=== PATIENT | female | born 1960 | race African-American/Black ===

== ENCOUNTER → 2017-09-14 | Outpatient (CLI) | payer BC ==
--- NOTE | 2017-09-18 09:46 | MM ---
Reason for exam: screening (asymptomatic). Last mammogram was performed 1 year and 8 months ago. History: Patient is postmenopausal. Family history of breast cancer in paternal cousin at age 42. Physical Findings: A clinical breast exam by your physician is recommended on an annual basis and results should be correlated with mammographic findings. MG Screening Mammo w CAD Bilateral CC and MLO view(s) were taken. Prior study comparison: January 24, 2016, bilateral MG screening mammo w CAD. August 27, 2014, bilateral MG screening mammo w CAD. The breast tissue is extremely dense which could obscure a lesion on mammography. Stable benign calcifications in the right breast. ASSESSMENT: Benign, BI-RAD 2 RECOMMENDATION: Routine screening mammogram of both breasts in 1 year.
== END | disposition home or self-care (01) ==
LOC: RADMAMWWP 10:46
PROVIDERS: ATTEND Obstetrics & Gynecology
DX: Z12.31 Encounter for screening mammogram for malignant neoplasm of breast (principal)

== ENCOUNTER → 2017-10-22 | Outpatient (CLI) | payer OTHER ==
--- NOTE | 2017-10-22 17:25 | CT ---
EXAMINATION TYPE: CT brain wo con DATE OF EXAM: 10/22/2017 COMPARISON: NONE HISTORY: Head contusion x3 days ago. CT DLP: 1079 mGycm. Automated Exposure Control for Dose Reduction was Utilized. TECHNIQUE: CT scan of the head is performed without contrast. FINDINGS: There is no acute intracranial hemorrhage, mass effect, or midline shift identified. The ventricles and sulci are within normal limits in size. Minimal mucosal thickening is seen within the ethmoid sinuses. The globes are intact and the remaining visualized sinuses are clear. Incidental n ote is made of a prominent foramen magnum. IMPRESSION: No acute intracranial process.
== END | disposition home or self-care (01) ==
LOC: RADCTMAIN 16:47
PROVIDERS: ATTEND Emergency Medicine
DX: S01.00XA Unspecified open wound of scalp, initial encounter (principal)
CPT/HCPCS: 70450

== ENCOUNTER → 2018-10-08 | Outpatient (CLI) | payer BC ==
[2018-10-08 08:46] VITALS: BP 175/81; PULSE 79; RESP 18; TEMP 98.1; BMI 30.4
--- NOTE | 2018-10-08 09:43 | P.HPOB ---
History of Present Illness H&P Date: 10/08/18 Chief Complaint: The patient is here for her routine gynecologic exam and mammogram. This is a 58-year-old with an LMP of 2016. The patient is here to establish with this office. She states that has been about 2 years since her last pelvic exam. She denies any postmenopausal bleeding. She does have some hot flashes and wakes up 3 to 4 times per night with hot flashes. She has also experienced some vaginal dryness. She is otherwise without gynecologic complaints. Review of Systems The patient has gained 20 pounds over the last year. She attributes the weight gain to decreased exercise . She denies respiratory, cardiac, or G.I. problems. Past Medical History Past Medical History: GERD/Reflux, Hypertension Additional Past Medical History / Comment(s): small hiatal hernia. 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 History of Any Multi-Drug Resistant Organisms: None Reported Past Surgical History: Section (x3), Cholecystectomy, Tubal Ligation ( At the time of her last ) Additional Past Surgical History / Comment(s): Ectopic surgery. 3 VTPs. Past Anesthesia/Blood Transfusion Reactions: No Reported Reaction Past Psychological History: No Psychological Hx Reported Smoking Status: Never smoker Past Alcohol Use History: None Reported Past Drug Use History: None Reported Additional History: She is . She does have a boyfriend but is not sexually active. 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 - Past Family History Father Family Medical History: Hypertension Additional Family Medical History / Comment(s): Paternal cousin had breast cancer. Paternal aunt had colon cancer. Mother Family Medical History: Hypertension Additional Family Medical History / Comment(s): Maternal grandfather had colon cancer. Son(s) Family Medical History: Hypertension Medications and Allergies Home Medications Medication Instructions Recorded Confirmed Type No Known Home Medications 12/03/14 10/08/18 History Allergies Allergy/AdvReac Type Severity Reaction Status Date / Time No Known Allergies Allergy Verified 10/08/18 08:37 Exam Vital Signs Temp Pulse Resp BP Pulse Ox 10/08/18 08:38 98.1 F 79 18 175/81 99 Intake and Output 10/07/18 10/08/18 10/08/18 22:59 06:59 14:59 Other: Weight 83.007 kg Height 5'5", weight 183 pounds, BMI 30.5. Repeat blood pressure was 150/88. This is a well-developed well-nourished black female who is alert and oriented times 3 in no acute distress. HEENT: Within normal limits. NECK: Supple without mass or thyromegaly. CHEST AND LUNGS: Clear to auscultation. HEART: Regular rate and rhythm. BREASTS: Are without mass or discharge. AXILLARY EXAM: Negative for adenopathy. BACK: Negative for CVA tenderness. ABDOMEN: Soft, nontender, without palpable masses. PELVIC EXAM: Normal external genitalia with mild atrophy. Cervix and vagina appear normal with mild atrophy. The cervix appears nulliparous. There is no unusual discharge. There is no evidence of prolapse. The uterus is midposition , nongravid size and nontender. There are no palpable adnexal masses or tenderness. RECTAL EXAM: rectovaginal exam is negative for mass or tenderness and is negative for occult blood. EXTREMITIES: Nontender. IMPRESSION: 1. 58-year-old menopausal female with normal gynecologic exam. 2. Elevated blood pressure. 3. Mild to moderate vasomotor symptoms. PLAN: 1. Pap smear was performed. 2. Self breast awareness was discussed with the patient. 3. Screening mammogram will be done today. 4. Osteoporosis prevention was discussed. I have stressed the importance of adequate calcium, vitamin D and regular exercise. Recommended amounts of calcium and vitamin D were also discussed. 5. The patient is aware of her blood pressure elevation. She states her primary care physician had recommended medication for hypertension, but the patient refused the medication and increased exercise which resulted in a normal follow-up blood pressure according to the patient. I have asked that she do her own blood pressure checks on a regular basis and to follow-up with Dr. Beckwith regarding hypertension. 6. We have discussed the management of her menopausal symptoms including vasomotor symptoms and vaginal dryness. At this time we will try without medication or hormones. We have discussed possible risks of hormone replacement therapy, including heart attack, stroke and breast cancer. She will try to go without medications at this time. She can also use a vaginal lubricant or vaginal moisturizer as needed. 7. I have recommended screening colonoscopy since she has never had this done. She will talk with Dr. Beckwith about this as well as her blood pressure. 8. She will return in one year.
--- NOTE | 2018-10-14 14:42 | MM ---
Reason for exam: screening (asymptomatic). Last mammogram was performed 1 year and 1 month ago. History: Patient is postmenopausal. Family history of breast cancer in paternal cousin at age 42. Physical Findings: A clinical breast exam by your physician is recommended on an annual basis and results should be correlated with mammographic findings. MG Screening Mammo w CAD Bilateral CC and MLO view(s) were taken. Prior study comparison: September 14, 2017, bilateral MG screening mammo w CAD. January 24, 2016, bilateral MG screening mammo w CAD. The breast tissue is heterogeneously dense. This may lower the sensitivity of mammography. Stable round grouped calcifications right upper outer quadrant. No significant changes when compared with prior studies. ASSESSMENT: Negative, BI-RAD 1 RECOMMENDATION: Routine screening mammogram of both breasts in 1 year.
== END ==
LOC: WWCWWP 08:19
PROVIDERS: ATTEND Obstetrics & Gynecology
DX: Z12.31 Encounter for screening mammogram for malignant neoplasm of breast (principal)
CPT/HCPCS: 77067

== ENCOUNTER → 2019-07-02 | Outpatient (CLI) | payer OTHER ==
--- NOTE | 2019-07-02 16:26 | XR ---
EXAMINATION TYPE: XR elbow complete LT DATE OF EXAM: 07/02/2019 CLINICAL HISTORY: S 50.02 XA TECHNIQUE: Frontal, lateral and oblique images of the left elbow are obtained. COMPARISON: None FINDINGS: There is no acute fracture/dislocation evident in the left elbow. No abnormal fat pad sig ns are seen. The overlying soft tissue appears unremarkable. Small posterior olecranon spur is prese nt. IMPRESSION: There is no acute fracture or dislocation in the left elbow.
== END | disposition home or self-care (01) ==
LOC: RADXRMAIN 11:00
PROVIDERS: ATTEND Emergency Medicine
DX: S50.02XA Contusion of left elbow, initial encounter (principal)

== ENCOUNTER → 2020-05-25 | Outpatient (CLI) | payer BC ==
[2020-05-25 12:44] VITALS: BP 154/98; PULSE 74; RESP 18; TEMP 98.8
--- NOTE | 2020-05-25 13:24 | P.HPOB ---
History of Present Illness H&P Date: 05/25/20 Chief Complaint: The patient is here for her routine gynecologic exam and ma mmogram. This is a 59-year-old 053 with an LMP of 2016. The patient is without gynecologic complaints. Review of Systems The patient feels like she has gained weight over the past year, but she is down about 3 pounds from last year. She denies respiratory or cardiac problems. GI: Some occasional gastric reflux. Past Medical History Past Medical History: GERD/Reflux, Hypertension Additional Past Medical History / Comment(s): small hiatal hernia. 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 History of Any Multi-Drug Resistant Organisms: None Reported Past Surgical History: Section, Cholecystectomy, Tubal Ligation Additional Past Surgical History / Comment(s): Ectopic surgery. 3 VTPs. Past Anesthesia/Blood Transfusion Reactions: No Reported Reaction Past Psychological History: No Psychological Hx Reported Smoking Status: Never smoker Past Alcohol Use History: None Reported Past Drug Use History: None Reported Additional History: She is . She is currently not seeing anybody at this time and denies any sexual activity at this time. 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 - Past Family History Father Family Medical History: Hypertension, Myocardial Infarction ([place]) Additional Family Medical History / Comment(s): Paternal cousin had breast cancer. Paternal aunt had colon cancer. Mother Family Medical History: Hypertension Additional Family Medical History / Comment(s): Maternal grandfather had colon cancer. Son(s) Family Medical History: Hypertension Medications and Allergies Home Medications Medication Instructions Recorded Confirmed Type Cholecalciferol [Vitamin D3 (25 2,000 unit PO DAILY 05/25/20 05/25/20 History Mcg = 1000 Iu)] Multivitamin [Multivitamins Adult 1 each PO DAILY 05/25/20 05/25/20 History Gummies] [place]-3/Dha/Epa/Fish Oil [Fish Oil 1 each PO DAILY 05/25/20 05/25/20 History 500 mg Softgel] Allergies Allergy/AdvReac Type Severity Reaction Status Date / Time No Known Allergies Allergy Verified 05/25/20 12:43 Exam Vital Signs Temp Pulse Resp BP Pulse Ox 05/25/20 12:37 98.8 F 74 18 154/98 98 Intake and Output 05/24/20 05/25/20 05/25/20 22:59 06:59 14:59 Other: Weight 81.647 kg Height 5 feet 5-1/2 inches, weight 180 pounds, BMI 29.5. This is a well-developed well-nourished black female who is alert and oriented times 3 in no acute distress. HEENT: Within normal limits. NECK: Supple without mass or thyromegaly. CHEST AND LUNGS: Clear to auscultation. HEART: Regular rate and rhythm. BREASTS: Are without mass or discharge. AXILLARY EXAM: Negative for adenopathy. BACK: Negative for CVA tenderness. ABDOMEN: Soft, nontender, without palpable masses. PELVIC EXAM: Normal external genitalia with minimal atrophy. Cervix and vagina appear normal and minimal atrophy. The cervix appears nulliparous. There is no unusual discharge. There is no evidence of prolapse. The uterus is midposition, nongravid size and nontender. There are no palpable adnexal masses or tenderness. RECTAL EXAM: Rectovaginal exam is negative for mass or tenderness and is negative for occult blood. EXTREMITIES: Nontender. IMPRESSION: 1. 59-year-old menopausal female with normal gynecologic exam. 2. Elevated blood pressure. The patient has a history of hypertension, but is not taking medication for this. PLAN: 1. Pap smear was deferred since she had a normal one on 10/08/2018. 2. Self breast awareness was discussed with the patient. 3. Screening mammogram will be done today. 4. We have discussed her elevated blood pressure. I have recommended that she follow up with Dr. Kelly for blood pressure elevation. I have also recommended that she check her own blood pressure at home on a regular basis. 5. She has not had a colonoscopy, but did cologuard testing earlier this year. She states it was negative. She will repeat this or do a colonoscopy in 3 years. 6.Osteoporosis prevention was discussed. I have stressed the importance of adequate calcium, vitamin D and regular exercise. Recommended amounts of calcium and vitamin D were also discussed. I have recommended doing a bone density test next year. 7. She was advised to return in one year for her annual well woman exam.
--- NOTE | 2020-05-27 09:29 | MM ---
Reason for exam: screening (asymptomatic). Last mammogram was performed 1 year and 8 months ago. History: Patient is postmenopausal. Family history of breast cancer in paternal cousin at age 42. Physical Findings: A clinical breast exam by your physician is recommended on an annual basis and results should be correlated with mammographic findings. MG Screening Mammo w CAD Bilateral CC and MLO view(s) were taken. Prior study comparison: October 08, 2018, bilateral MG screening mammo w CAD. September 14, 2017, bilateral MG screening mammo w CAD. The breast tissue is heterogeneously dense. This may lower the sensitivity of mammography. Stable grouped course/dystrophic calcifications right upper outer quadrant. No significant changes when compared with prior studies. ASSESSMENT: Benign, BI-RAD 2 RECOMMENDATION: Routine screening mammogram of both breasts in 1 year.
== END | disposition home or self-care (01) ==
LOC: WWCWWP 12:29
PROVIDERS: ATTEND Obstetrics & Gynecology
DX: Z12.31 Encounter for screening mammogram for malignant neoplasm of breast (principal)
CPT/HCPCS: 77067

== ENCOUNTER 2021-03-19 09:17 | Emergency (ER) | payer BC ==
[2021-03-19 09:22] VITALS: RESP 18; TEMP 97.8
--- NOTE | 2021-03-19 09:35 | ED ---
General Adult HPI - General Chief complaint: Recheck/Abnormal Lab/Rx Stated complaint: Hypertensive Time Seen by Provider: 03/19/21 09:25 Source: patient, RN notes reviewed Mode of arrival: ambulatory Limitations: no limitations - History of Present Illness Initial comments: This a 60-year-old female presents emergency dept chief complaint of lower abdom inal pain. Patient states started yesterday is mild in nature at this time she states it's along her scar. Patient states that she had no trauma denies any dysuria hematuria no diarrhea no constipation or melena hematochezia, hematemesis copremesis no fevers chills. She states it hurts with certain movements. Patient has had her prior cholecystectomy, prior ectopic . Patient states that she is on losartan for high blood pressure she took around 5 morning states that she's not very consistent with a. Patient was sent over from urgent care secondary to hypertension denies chest pain or shortness breath. - Related Data Home Medications Medication Instructions Recorded Confirmed Cholecalciferol [Vitamin D3 (25 2,000 unit PO DAILY 05/25/20 03/19/21 Mcg = 1000 Iu)] Multivitamin [Multivitamins Adult 1 tab PO DAILY 05/25/20 03/19/21 Gummies] [place]-3/Dha/Epa/Fish Oil [Fish Oil 1 tab PO DAILY 05/25/20 03/19/21 500 mg Softgel] Losartan Potassium 50 mg PO DAILY 03/19/21 03/19/21 Allergies Allergy/AdvReac Type Severity Reaction Status Date / Time No Known Allergies Allergy Verified 03/19/21 10:50 Review of Systems ROS Statement: Those systems with pertinent positive or pertinent negative responses have been documented in the HPI. ROS Other: All systems not noted in ROS Statement are negative. Past Medical History Past Medical History: GERD/Reflux, Hypertension Additional Past Medical History / Comment(s): small hiatal hernia History of Any Multi-Drug Resistant Organisms: None Reported Past Surgical History: Section, Cholecystectomy, Tubal Ligation Additional Past Surgical History / Comment(s): Ectopic surgery. 3 VTPs. Past Anesthesia/Blood Transfusion Reactions: No Reported Reaction Past Psychological History: No Psychological Hx Reported Smoking Status: Never smoker Past Alcohol Use History: None Reported Past Drug Use History: None Reported - Past Family History Father Family Medical History: Hypertension, Myocardial Infarction ([place]) Additional Family Medical History / Comment(s): Paternal cousin had breast cancer. Paternal aunt had colon cancer. Mother Family Medical History: Hypertension Additional Family Medical History / Comment(s): Maternal grandfather had colon cancer. Son(s) Family Medical History: Hypertension General Exam Limitations: no limitations General appearance: alert, in no apparent distress Head exam: Present: atraumatic, normocephalic, normal inspection Eye exam: Present: normal appearance, PERRL, EOMI. Absent: scleral icterus, conjunctival injection, periorbital swelling Respiratory exam: Present: normal lung sounds bilaterally. Absent: respiratory distress, wheezes, rales, rhonchi, stridor Cardiovascular Exam: Present: regular rate, normal rhythm, normal heart sounds. Absent: systolic murmur, diastolic murmur, rubs, gallop, clicks GI/Abdominal exam: Present: soft, tenderness (Minimal suprapubic), normal bowel sounds. Absent: distended, guarding, rebound, rigid Back exam: Absent: CVA tenderness (R), CVA tenderness (L) Neurological exam: Present: alert Skin exam: Present: warm, dry, intact, normal color. Absent: rash Course Vital Signs 03/19/21 03/19/21 03/19/21 09:20 09:46 10:16 Temperature 97.8 F Pulse Rate 68 59 L 62 Respiratory 18 18 18 Rate Blood Pressure 178/92 177/109 174/100 O2 Sat by Pulse 100 100 100 Oximetry 03/19/21 03/19/21 10:56 11:25 Temperature Pulse Rate 60 79 Respiratory 18 18 Rate Blood Pressure 183/95 166/100 O2 Sat by Pulse 100 100 Oximetry Medical Decision Making - Medical Decision Making 6-year-old female presented for abdominal pain. Patient sent in from outpatient for abnormal blood pressure. Patient states she is asymptomatic has not been taking her medications as directed. Patient's blood pressures improving. Patient advised to follow-up beginning of the week, keeping log of her blood pressure. Labs unremarkable. She has been minimally tender lower abdomen nonsurgical, patient may have underlying abdominal wall injury. She will follow-up with her PCP and return for any worsening changes symptoms. - Lab Data Result diagrams: 03/19/21 09:45 03/19/21 09:45 Lab Results 03/19/21 03/19/21 03/19/21 Range/Units 09:45 09:45 10:40 WBC 4.0 (3.8-10.6) k/uL RBC 4.43 (3.80-5.40) m/uL Hgb 13.5 (11.4-16.0) gm/dL Hct 41.4 (34.0-46.0) % MCV 93.5 (80.0-100.0) fL MCH 30.6 (25.0-35.0) pg MCHC 32.7 (31.0-37.0) g/dL RDW 13.3 (11.5-15.5) % Plt Count 200 (150-450) k/uL MPV 8.2 Neutrophils % 46 % Lymphocytes % 34 % Monocytes % 10 % Eosinophils % 4 % Basophils % 1 % Neutrophils # 1.8 (1.3-7.7) k/uL Lymphocytes # 1.4 (1.0-4.8) k/uL Monocytes # 0.4 (0-1.0) k/uL Eosinophils # 0.2 (0-0.7) k/uL Basophils # 0.1 (0-0.2) k/uL Sodium 136 L (137-145) mmol/L Potassium 4.2 (3.5-5.1) mmol/L Chloride 100 (98-107) mmol/L Carbon Dioxide 30 (22-30) mmol/L Anion Gap 6 mmol/L BUN 11 (7-17) mg/dL Creatinine 0.52 (0.52-1.04) mg/dL Est GFR (CKD-EPI)AfAm >90 (>60 ml/min/1.73 sqM) Est GFR (CKD-EPI)NonAf >90 (>60 ml/min/1.73 sqM) Glucose 90 (74-99) mg/dL Calcium 9.6 (8.4-10.2) mg/dL Total Bilirubin 0.2 (0.2-1.3) mg/dL AST 31 (14-36) U/L ALT 18 (4-34) U/L Alkaline Phosphatase 74 (38-126) U/L Total Protein 7.7 (6.3-8.2) g/dL Albumin 4.5 (3.5-5.0) g/dL Lipase 90 (23-300) U/L Urine Color Light Yellow Urine Appearance Clear (Clear) Urine pH 7.5 (5.0-8.0) Ur Specific [place] 1.011 (1.001-1.035) Urine Protein Negative (Negative) Urine Glucose (UA) Negative (Negative) Urine Ketones Negative (Negative) Urine Blood Negative (Negative) Urine Nitrite Negative (Negative) Urine Bilirubin Negative (Negative) Urine Urobilinogen <2.0 (<2.0) mg/dL Ur Leukocyte Esterase Negative (Negative) Disposition Clinical Impression: Abdominal pain, Hypertension Disposition: HOME SELF-CARE Condition: Stable Instructions (If sedation given, give patient instructions): Abdominal Pain (ED) Additional Instructions: Follow-up with PCP regarding yor blood pressure. Continue taking medications as directed.Please return to the Emergency Department if symptoms worsen or any other concerns. Is patient prescribed a controlled substance at d/c from ED?: No Referrals: Alonso Kelly MD [Primary Care Provider] - 1-2 days Time of Disposition: 11:27
[2021-03-19] MEDS: ENALAPRILAT 1.25 MG/ML 1 ML VIAL IVP STA (09:40)
[2021-03-19] MEDS: SODIUM CHLORIDE 0.9% 1,000 ML IV STA (09:41)
[2021-03-19 09:58] LABS: Basophils # (A) 0.1 k/uL (0-0.2); Basophils % (A) 1 %; Eosinophils # (A) 0.2 k/uL (0-0.7); Eosinophils % (A) 4 %; HCT 41.4 % (34.0-46.0); HGB 13.5 gm/dL (11.4-16.0); Lymphocytes # (A) 1.4 k/uL (1.0-4.8); Lymphocytes % (A) 34 %; MCH 30.6 pg (25.0-35.0); MCHC 32.7 g/dL (31.0-37.0); MCV 93.5 fL (80.0-100.0); Mean Platelet Volume 8.2; Monocytes # (A) 0.4 k/uL (0-1.0); Monocytes % (A) 10 %; Neutrophils # (A) 1.8 k/uL (1.3-7.7); Neutrophils % (A) 46 %; Platelet Count 200 k/uL (150-450); RBC 4.43 m/uL (3.80-5.40); RDW 13.3 % (11.5-15.5)
[2021-03-19 10:07] LABS: ALT 18 U/L (4-34); AST 31 U/L (14-36); African American GFR (CKD) >90 (>60 ml/min/1.73 sqM); Albumin 4.5 g/dL (3.5-5.0); Alkaline Phosphatase 74 U/L (38-126); Anion Gap 6 mmol/L; Blood Urea Nitrogen 11 mg/dL (7-17); Calcium 9.6 mg/dL (8.4-10.2); Carbon Dioxide 30 mmol/L (22-30); Chloride 100 mmol/L (98-107); Glucose 90 mg/dL (74-99); Lipase 90 U/L (23-300); Non-African American GFR(CKD) >90 (>60 ml/min/1.73 sqM); Potassium 4.2 mmol/L (3.5-5.1); Sodium 136 mmol/L (137-145); Total Bilirubin 0.2 mg/dL (0.2-1.3); Total Protein 7.7 g/dL (6.3-8.2)
[2021-03-19] MEDS: hydrALAZINE HCL 20 MG/ML 1 ML VIAL IVP STA (10:58)
[2021-03-19 11:00] LABS: Appearance,Urine Clear (Clear); Bilirubin,Urine Negative (Negative); Blood,Urine Negative (Negative); Color,Urine Light Yellow; Glucose,Urine (UA) Negative (Negative); Ketones,Urine Negative (Negative); Leukocyte Esterase,Urine Negative (Negative); Nitrite,Urine Negative (Negative); PH, Urine 7.5 (5.0-8.0); Protein,Urine Negative (Negative); Specific Gravity,Urine 1.011 (1.001-1.035); Urobilinogen,Urine <2.0 mg/dL (<2.0)
[2021-03-19 11:26] VITALS: BP 166/100; PULSE 79
== END 2021-03-19 11:32 | disposition home or self-care (01) ==
LOC: EC 09:17
DX: R10.30 Lower abdominal pain, unspecified (principal); I10 Essential (primary) hypertension; K21.9 Gastro-esophageal reflux disease without esophagitis
CPT/HCPCS: 36415; 80053; 83690; 85025; 81003; 99284; 96374; 96375; 96361; J0360

== ENCOUNTER → 2021-04-05 | Outpatient (CLI) | payer BC ==
[2021-04-05 12:49] VITALS: BP 135/90; PULSE 67; RESP 14; TEMP 98.6
--- NOTE | 2021-04-05 13:51 | P.HPOB ---
History of Present Illness H&P Date: 04/05/21 Chief Complaint: Low abdominal and pelvic pain which started 3 weeks ago. This is a 68-year-old with an LMP of 2016. The patient states that she developed sudden low abdominal and pelvic pain around the area of her scar 3 weeks ago. She was at work when she first noticed the pain and she was not doing any strenuous activity at that time. She had been doing Planck exercises but the pain did not start while doing the exercises and she thinks several days after doing the exercises when she noticed the pain. The pain was an 8 out of 10 and she went to an urgent care clinic. She says she was sent to the emergency room and she also states her blood pressure was very elevated at that time. She states she had a urine and blood tests but no imaging studies were done at that time. The pain now is rated at a 0 out of 10, but she states when she lays flat she occasionally will feel slight discomfort behind the pubic bone in the pelvic area. She has not been sexually active for about 3 years. Review of Systems The patient has lost 7 pounds over the last year. She denies respiratory, cardiac, or G.I. problems. Past Medical History Past Medical History: GERD/Reflux, Hypertension Additional Past Medical History / Comment(s): small hiatal hernia. 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 History of Any Multi-Drug Resistant Organisms: None Reported Past Surgical History: Section, Cholecystectomy, Tubal Ligation Additional Past Surgical History / Comment(s): Ectopic surgery. section 3. 3 VTPs. Past Anesthesia/Blood Transfusion Reactions: No Reported Reaction Past Psychological History: No Psychological Hx Reported Smoking Status: Never smoker Past Alcohol Use History: None Reported Past Drug Use History: None Reported Additional History: She is and is not seeing anybody at this time and denies any recent sexual activity. 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 - Past Family History Father Family Medical History: Hypertension, Myocardial Infarction ([place]) Additional Family Medical History / Comment(s): Paternal cousin had breast cancer. Paternal aunt had colon cancer. Mother Family Medical History: Hypertension Additional Family Medical History / Comment(s): Maternal grandfather had colon cancer. Son(s) Family Medical History: Hypertension Medications and Allergies Home Medications Medication Instructions Recorded Confirmed Type Cholecalciferol [Vitamin D3 (25 2,000 unit PO DAILY 05/25/20 04/05/21 History Mcg = 1000 Iu)] Multivitamin [Multivitamins Adult 1 tab PO DAILY 05/25/20 04/05/21 History Gummies] [place]-3/Dha/Epa/Fish Oil [Fish Oil 1 tab PO DAILY 05/25/20 04/05/21 History 500 mg Softgel] Losartan Potassium 50 mg PO DAILY 03/19/21 04/05/21 History Allergies Allergy/AdvReac Type Severity Reaction Status Date / Time No Known Allergies Allergy Verified 03/19/21 10:50 Exam Vital Signs Temp Pulse Resp BP Pulse Ox 04/05/21 12:39 98.6 F 67 14 135/90 99 Intake and Output 04/04/21 04/05/21 04/05/21 22:59 06:59 14:59 Other: Weight 78.471 kg Height 5 feet 5 inches, weight 173 pounds, BMI 28.8. This is a well-developed well-nourished black female who is alert and oriented times 3 in no acute distress. CHEST AND LUNGS: Clear to auscultation. HEART: Regular rate and rhythm. BACK: Negative for CVA tenderness. ABDOMEN: Bowel sounds are normal and 2+. Soft, without palpable masses. There is minimal suprapubic tenderness at the low transverse section scar site. The scar does not appear inflamed and there are no palpable masses. There is no rebound tenderness. There is no other tenderness throughout the entire rest of the abdomen. PELVIC EXAM: Normal external genitalia. Cervix and vagina appear normal. There is no unusual discharge. There is no cervical motion tenderness. There is no evidence of prolapse. The uterus is midposition, nongravid size and nontender. There are no palpable adnexal masses or tenderness. EXTREMITIES: Nontender. Additional studies: 03/19/2021: CBC was within normal limits, urinalysis was negative and comprehensive chem panel was unremarkable. IMPRESSION: 1. 60-year-old menopausal female with a three-week history of pelvic pain which started suddenly and has nearly completely resolved. Differential diagnosis will include musculoskeletal pain, incision site scar tearing following exercise, and less likely, ovarian or GI pain. Pelvic infection is also unlikely. PLAN: 1. GC and chlamydia testing was obtained from the cervix. 2. We have discussed the option of a pelvic ultrasound to further evaluate the discomfort. Since the pain has nearly completely resolved we have also discussed the option of conservative management with a recheck in 2 months. The patient would like to hold on the pelvic ultrasound and she will return in 2 months or sooner if worsening symptoms. In 2 months if she is still having pelvic symptoms, we will consider doing the ultrasound at that time. 3. She'll return in 2 months for her annual well woman examination and for reevaluation of the pelvic and abdominal pain. She was instructed to make an appointment sooner if symptoms are getting much worse. She'll also try to pay attention to any related activities are associated with the pain or if the pain is associated with other things such as full bladder or bowel movements. 4. Total times patient 30 minutes. 5. []
== END ==
LOC: WWCWWP 11:55
PROVIDERS: ATTEND Obstetrics & Gynecology
DX: R10.2 Pelvic and perineal pain (principal); I10 Essential (primary) hypertension; Z79.899 Other long term (current) drug therapy

== ENCOUNTER → 2021-09-14 | Outpatient (CLI) | payer BC ==
[2021-09-14 10:55] VITALS: BP 150/91; PULSE 69; RESP 18; TEMP 98.5
--- NOTE | 2021-09-14 11:45 | P.HPOB ---
History of Present Illness H&P Date: 09/14/21 Chief Complaint: The patient is here for her routine gynecologic exam and ma mmogram. This is a 61-year-old with an LMP of 2016. The patient is without gynecologic complaints and denies any postmenopausal bleeding. She was seen here about 5 months ago for low abdominal pain around the site of her scar. This was following strenuous exercise and at that time the pain was resolving. She states it has completely resolved and she no longer has any problem with abdominal pain. She has not been sexually active for more than 3 years. Review of Systems The patient has lost 6 pounds over the last year. She denies respiratory, cardiac, or G.I. problems. Past Medical History Past Medical History: GERD/Reflux, Hypertension Additional Past Medical History / Comment(s): small hiatal hernia. 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 History of Any Multi-Drug Resistant Organisms: None Reported Past Surgical History: Section, Cholecystectomy, Tubal Ligation Additional Past Surgical History / Comment(s): Ectopic surgery. section 3. 3 VTPs. Past Anesthesia/Blood Transfusion Reactions: No Reported Reaction Past Psychological History: No Psychological Hx Reported Smoking Status: Never smoker Past Alcohol Use History: None Reported Past Drug Use History: None Reported Additional History: She is and is not seeing anybody at this time. She has not been sexually active. 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 - Past Family History Father Family Medical History: Hypertension, Myocardial Infarction ([place]) Additional Family Medical History / Comment(s): Paternal cousin had breast can cer. Paternal aunt had colon cancer. Mother Family Medical History: Hypertension Additional Family Medical History / Comment(s): Maternal grandfather had colon cancer. Son(s) Family Medical History: Hypertension Medications and Allergies Home Medications Medication Instructions Recorded Confirmed Type Cholecalciferol [Vitamin D3 (25 2,000 unit PO DAILY 05/25/20 09/14/21 History Mcg = 1000 Iu)] Multivitamin [Multivitamins Adult 1 tab PO DAILY 05/25/20 09/14/21 History Gummies] [place]-3/Dha/Epa/Fish Oil [Fish Oil 1 tab PO DAILY 05/25/20 09/14/21 History 500 mg Softgel] Losartan Potassium 50 mg PO DAILY 03/19/21 09/14/21 History Allergies Allergy/AdvReac Type Severity Reaction Status Date / Time No Known Allergies Allergy Verified 09/14/21 10:48 Exam Vital Signs Temp Pulse Resp BP Pulse Ox 09/14/21 10:49 98.5 F 69 18 150/91 100 Intake and Output 09/13/21 09/14/21 09/14/21 22:59 06:59 14:59 Other: Weight 81.193 kg Height 5 feet 5 inches, weight 179 pounds, BMI 29.8. This is a well-developed well-nourished black female who is alert and oriented times 3 in no acute distress. HEENT: Within normal limits. NECK: Supple without mass or thyromegaly. CHEST AND LUNGS: Clear to auscultation. HEART: Regular rate and rhythm. BREASTS: Are without mass or discharge. AXILLARY EXAM: Negative for adenopathy. BACK: Negative for CVA tenderness. ABDOMEN: Soft, nontender, without palpable masses. There is no tenderness near the scar. PELVIC EXAM: Normal external genitalia with mild atrophy. Cervix and vagina appear normal with mild atrophy. There is no unusual discharge. There is no evidence of prolapse. The uterus is midposition, nongravid size and nontender. There are no palpable adnexal masses or tenderness. RECTAL EXAM: Rectovaginal exam is negative for mass or tenderness and is negative for occult blood. EXTREMITIES: Nontender. IMPRESSION: 1. 61-year-old menopausal female with normal gynecologic exam. 2. Resolution of pain near her scar with normal exam today. 3. Elevated blood pressure with history of chronic hypertension. Patient states she recently was started on blood pressure medication. PLAN: 1. Pap smear cotest was performed. 2. Self breast awareness was discussed with the patient. We have also discussed symptoms associated with inflammatory breast cancer. 3. Screening mammogram will be done today. 4. Osteoporosis prevention was discussed. I have stressed the importance of adequate calcium, vitamin D and regular exercise. Recommended amounts of calcium and vitamin D were also discussed. Baseline bone density testing will be done today. 5. STD prevention was discussed. I have stressed the importance of limiting sexual partners and, if she is sexually active, I have recommended that she use condoms. 6. She has completed her Covid vaccination series and did receive a booster shot. 7. The patient states she had a negative Cologuard test in 2019. She will continue to follow-up with Dr. Kelly regarding colorectal cancer screening. 8. We have discussed her elevated blood pressure today. I recommended that she check her own blood pressures on a regular basis at home since she does have a blood pressure cuff for this. She will follow up with Dr. Kelly for elevated blood pressures. 9. She was advised to return in one year for her annual well woman exam.
--- NOTE | 2021-09-14 16:15 | BD ---
EXAMINATION TYPE: Axial Bone Density DATE OF EXAM: 09/14/2021 COMPARISON: NONE CLINICAL HISTORY: Height: 65 Weight: 179 FRAX RISK QUESTIONS: Alcohol (3 or more units per day): no Family History (Parent hip fracture): no Glucocorticoids (More than 3mos): no (Ex: prednisone, prednisolone, methylprednisolone, dexamethasone, and hydrocortisone). History of Fracture in Adulthood: no Secondary Osteoporosis: 1. Type 1 Diabetes: no 2. Hyperthyroidism: no 3. Menopause before 45: no 4. Malnutrition: no 5. Chronic liver disease: no Rheumatoid Arthritis: no Current Tobacco Use: no RISK FACTORS HISTORY OF: Surgery to Spine/Hip(right/left)/Wrist (right/left): no Family History of Osteoporosis: no Active: yes Diet low in dairy products/other sources of calcium: no Postmenopausal woman: yes Take estrogen and/or progesterone medications: no Lost more than 2 inches in height since high school: no MEDICATIONS: blood pressure meds, vitamins Additional History: EXAM MEASUREMENTS: Bone mineral densitometry was performed using the 4 the stars System. Bone mineral density as measured about the Lumbar spine is: ----- L1-L4(G/cm2): 1.005 T Score Values are as follows: ----- L2: -1.4 ----- L3: -1.1 ----- L4: -2.1 ----- L1-L4: -1.5 Bone mineral density : baseline Bone mineral density about the R hip (g/cm2): 0.904 Bone mineral density about the L hip (g/cm2): 0.872 T Score values are as follows: -----R Neck: -1.2 -----L Neck: -1.0 -----R Total: -1.0 -----L Total: -1.1 Bone mineral density : baseline IMPRESSION: Osteopenia (T Score between -2.5 and -1). There is slightly increased risk of fracture and the patient may be considered for treatment. Re-Screen 2-5 years. NOTE: T-SCORE=SD OF THE YOUNG ADULT MEAN.
--- NOTE | 2021-09-16 11:42 | MM ---
Reason for exam: screening (asymptomatic). Last mammogram was performed 1 year and 4 months ago. History: Patient is postmenopausal. Family history of breast cancer in paternal cousin at age 42. Physical Findings: A clinical breast exam by your physician is recommended on an annual basis and results should be correlated with mammographic findings. MG Screening Mammo w CAD Bilateral CC and MLO view(s) were taken. Prior study comparison: May 25, 2020, bilateral MG screening mammo w CAD. October 08, 2018, bilateral MG screening mammo w CAD. The breast tissue is heterogeneously dense. This may lower the sensitivity of mammography. Stable course calcifications lateral right breast. No significant changes when compared with prior studies. ASSESSMENT: Benign, BI-RAD 2 RECOMMENDATION: Routine screening mammogram of both breasts in 1 year.
== END ==
LOC: WWCWWP 10:34
PROVIDERS: ATTEND Obstetrics & Gynecology
DX: Z12.31 Encounter for screening mammogram for malignant neoplasm of breast (principal); Z01.419 Encounter for gynecological examination (general) (routine) without abnormal findings; I10 Essential (primary) hypertension; Z80.3 Family history of malignant neoplasm of breast; Z79.899 Other long term (current) drug therapy
CPT/HCPCS: 77067; 77080

== ENCOUNTER → 2021-11-19 | Outpatient (CLI) | payer BC ==
--- NOTE | 2021-11-19 09:09 | XR ---
EXAMINATION TYPE: XR orbit detect foreign body DATE OF EXAM: 11/19/2021 COMPARISON: NONE HISTORY: MRI clearance TECHNIQUE: 3 views of the orbits are submitted. FINDINGS: No evidence for radiopaque foreign body. IMPRESSION: The patient is cleared for MRI.
== END | disposition home or self-care (01) ==
LOC: RADMRIMAIN 08:22
PROVIDERS: ATTEND Orthopaedic Surgery
DX: Z18.10 Retained metal fragments, unspecified (principal)
CPT/HCPCS: 70030

== ENCOUNTER → 2023-12-04 | Outpatient (CLI) | payer BC ==
[2023-12-04 14:18] VITALS: BP 160/95; PULSE 72; RESP 16; TEMP 98.5
--- NOTE | 2023-12-04 14:54 | P.HPOB ---
History of Present Illness H&P Date: 12/04/23 Chief Complaint: The patient is here for her routine gynecologic exam and ma mmogram. This is a 63-year-old 053 with an LMP of 2016. Patient is without gynecologic complaints and denies any postmenopausal bleeding. Review of Systems The patient has gained 5 pounds over the last year. She denies respiratory, cardiac, or G.I. problems. Past Medical History Past Medical History: GERD/Reflux, Hypertension Additional Past Medical History / Comment(s): small hiatal hernia. 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 History of Any Multi-Drug Resistant Organisms: None Reported Past Surgical History: Section, Cholecystectomy, Tubal Ligation Additional Past Surgical History / Comment(s): Ectopic surgery. section 3. 3 VTPs. 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 - Past Family History Father Family Medical History: Hypertension, Myocardial Infarction ([place]) Additional Family Medical History / Comment(s): Paternal cousin had breast cancer. Paternal aunt had colon cancer. Mother Family Medical History: Hypertension Additional Family Medical History / Comment(s): Maternal grandfather had colon cancer. Son(s) Family Medical History: Hypertension Medications and Allergies Home Medications Medication Instructions Recorded Confirmed Type Cholecalciferol [Vitamin D3 (25 2,000 unit PO DAILY 05/25/20 12/04/23 History Mcg = 1000 Iu)] Multivitamin [Multivitamins Adult 1 tab PO DAILY 05/25/20 12/04/23 History Gummies] [place]-3/Dha/Epa/Fish Oil [Fish Oil 1 tab PO DAILY 05/25/20 12/04/23 History 500 mg Softgel] Losartan Potassium 50 mg PO DAILY 03/19/21 12/04/23 History Allergies Allergy/AdvReac Type Severity Reaction Status Date / Time No Known Allergies Allergy Verified 12/04/23 14:01 Exam Vital Signs Temp Pulse Resp BP Pulse Ox 12/04/23 14:02 98.5 F 72 16 160/95 99 Intake and Output 12/03/23 12/04/23 12/04/23 22:59 06:59 14:59 Other: Weight 83.915 kg Height 5 feet 5 inches, weight 185 pounds, BMI 30.8. This is a well-developed well-nourished black female who is alert and oriented times 3 in no acute distress. HEENT: Within normal limits. NECK: Supple without mass or thyromegaly. CHEST AND LUNGS: Clear to auscultation. HEART: Regular rate and rhythm. BREASTS: Are without mass or discharge. AXILLARY EXAM: Negative for adenopathy. BACK: Negative for CVA tenderness. ABDOMEN: Soft, nontender, without palpable masses. PELVIC EXAM: Normal external genitalia with mild atrophy. Cervix and vagina appear normal with mild atrophy. There is no unusual discharge. There is no evidence of prolapse. The uterus is midposition, nongravid size and nontender. There are no palpable adnexal masses or tenderness. RECTAL EXAM: Rectovaginal exam is negative for mass or tenderness and is negative for occult blood. EXTREMITIES: Nontender. IMPRESSION: 1. 63-year-old menopausal female with normal gynecologic exam. 2. History of osteopenia. 3. Elevated blood pressure with history of chronic hypertension. PLAN: 1. Pap smear was deferred since she had a negative Pap smear cotest on 09/14/2021. 2. Self breast awareness was discussed with the patient. We have also discussed symptoms associated with inflammatory breast cancer. 3. Screening mammogram will be done today. 4. Osteoporosis prevention was discussed. I have stressed the importance of adequate calcium, vitamin D and regular exercise. Recommended amounts of calcium and vitamin D were also discussed. I recommended that she repeat her bone density test and the order slip was given to the patient for this. She states she will probably have this done next year at her annual exam. 5. The patient states she had a Cologuard test done about 1-2 years ago. She will continue to do this through her PCP. 6. We have discussed her elevated blood pressure. She does have a blood pressure cuff at home. Recommended that she check her own blood pressure at home on a regular basis and that she alters the time of day when she has taken. She is to follow up with her PCP for blood pressure elevations. 7. She was advised to return in one year for her annual well woman exam.
--- NOTE | 2023-12-05 14:11 | MM ---
Reason for Exam: Screening (asymptomatic). Last screening mammogram was performed 12 month(s) ago. Patient History: Menarche at age 14. First Full-Term at age 24. Postmenopausal. Paternal cousin had breast cancer, age 42. Risk Values: Emily 5 year model risk: 1.2%. NCI Lifetime model risk: 4.9%. Prior Study Comparison: 05/25/2020 Bilateral Screening Mammogram, [facility]. 09/14/2021 Bilateral Screening Mammogram, [facility]. 11/21/2022 Bilateral MG 3D screening mammo w/cad, [facility]. Tissue Density: The breasts are heterogeneously dense, which may obscure small masses. Findings: Analyzed By CAD. There is no suspicious group of microcalcifications or new suspicious mass. Overall Assessment: Negative, BI-RAD 1 Management: Screening Mammogram of both breasts in [address] [facility] will attempt to contact patient to return for supplemental views and ultrasound if indicated. Patient should continue monthly self-breast exams. A clinical breast exam by your physician is recommended on an annual basis. This exam should not preclude additional follow-up of suspicious palpable abnormalities. Note on Emily scores and lifetime risk: 1. A Emily score greater than 3% is considered moderate risk. If this is the case, consider specialist referral to assess eligibility for a risk reducing agent. 2. If overall lifetime risk for the development of breast cancer is 20% or higher, the patient may qualify for future screening with alternating mammogram and breast MRI. Electronically signed and approved by: Xu Osborne DO
== END ==
LOC: WWCWWP 13:52
PROVIDERS: ATTEND Obstetrics & Gynecology
DX: Z12.31 Encounter for screening mammogram for malignant neoplasm of breast (principal); M85.80 Other specified disorders of bone density and structure, unspecified site; I10 Essential (primary) hypertension; Z78.0 Asymptomatic menopausal state; Z79.899 Other long term (current) drug therapy; Z98.51 Tubal ligation status
CPT/HCPCS: 77063; 77067

== ENCOUNTER → 2025-01-20 | Outpatient (CLI) | payer BC ==
[2025-01-20 13:12] VITALS: BP 153/86; PULSE 73; RESP 16; TEMP 98.3
--- NOTE | 2025-01-20 13:20 | P.HPOB ---
History of Present Illness H&P Date: 01/20/25 Chief Complaint: The patient is here for her routine gynecologic exam and ma mmogram. This is a 64-year-old -0-5-3 with an LMP of 2016. Patient is without gynecologic complaints and denies any postmenopausal bleeding. Review of Systems She has lost about 5 pounds over the past year. She denies respiratory or cardiac problems. GI: Occasional gastric reflux symptoms with certain foods. Past Medical History Past Medical History: GERD/Reflux, Hypertension Additional Past Medical History / Comment(s): small hiatal hernia. PAST [employer] HISTORY: She has no history of STDs. History of Any Multi-Drug Resistant Organisms: None Reported Past Surgical History: Section, Cholecystectomy, Tubal Ligation Additional Past Surgical History / Comment(s): Ectopic surgery. section 3. 3 VTPs. Past Anesthesia/Blood Transfusion Reactions: No Reported Reaction Past Psychological History: No Psychological Hx Reported Smoking Status: Never smoker Past Alcohol Use History: None Reported Past Drug Use History: None Reported Additional History: She is and is currently not sexually active. 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 - Past Family History Father Family Medical History: Hypertension, Myocardial Infarction (MS) Additional Family Medical History / Comment(s): Paternal cousin had breast cancer. Paternal aunt had colon cancer. Mother Family Medical History: Hypertension Additional Family Medical History / Comment(s): Maternal grandfather had colon cancer. Son(s) Family Medical History: Hypertension Medications and Allergies Home Medications Medication Instructions Recorded Confirmed Type Cholecalciferol [Vitamin D3 (25 2,000 unit PO DAILY 05/25/20 12/04/23 History Mcg = 1000 Iu)] Multivitamin [Multivitamins Adult 1 tab PO DAILY 05/25/20 12/04/23 History Gummies] [place]-3/Dha/Epa/Fish Oil [Fish Oil 1 tab PO DAILY 05/25/20 12/04/23 History 500 mg Softgel] Allergies Allergy/AdvReac Type Severity Reaction Status Date / Time No Known Allergies Allergy Verified 01/20/25 12:56 Exam Vital Signs Temp Pulse Resp BP Pulse Ox 01/20/25 12:58 98.3 F 73 16 153/86 99 Intake and Output 01/19/25 01/20/25 01/20/25 22:59 06:59 14:59 Other: Weight 81.647 kg Height 5 feet 3 inches, weight 180 pounds, BMI 31.9. This is a well-developed well-nourished black female who is alert and oriented times 3 in no acute distress. HEENT: Within normal limits. NECK: Supple without mass or thyromegaly. CHEST AND LUNGS: Clear to auscultation. HEART: Regular rate and rhythm. BREASTS: Are without mass or discharge. AXILLARY EXAM: Negative for adenopathy. BACK: Negative for CVA tenderness. ABDOMEN: Soft, nontender, without palpable masses. PELVIC EXAM: Normal external genitalia with mild atrophy. Cervix and vagina appe ar normal with mild atrophy. There is no unusual discharge. There is no evidence of prolapse. The uterus is midposition, nongravid size and nontender. There are no palpable adnexal masses or tenderness. RECTAL EXAM: Rectovaginal exam is negative for mass or tenderness and is negative for occult blood. EXTREMITIES: Nontender. IMPRESSION: 1. 64-year-old menopausal female with normal gynecologic exam. 2. History of osteopenia. 3. Elevated blood pressure with history of chronic hypertension. She has not been consistently taking her blood pressure medications. PLAN: 1. Pap smear was deferred since she had a negative Pap smear cotest on 09/14/2021. Will plan on repeating this next year. 2. Self breast awareness was discussed with the patient. We have also discussed symptoms associated with inflammatory breast cancer. 3. Screening mammogram will be done today. 4. Osteoporosis prevention was discussed. I have stressed the importance of adequate calcium, vitamin D and regular exercise. Recommended amounts of calcium and vitamin D were also discussed. 5. We have discussed her elevated blood pressure. She states she was prescribed a blood pressure medication but has not been consistently taking it. She states this is because her blood pressures have been normal at home. I have recommended that she check her own blood pressures at home, but I do recommend that she discuss her blood pressure medication with her PCP and if the PCP is prescribing daily medication, I have recommended that she take it as prescribed. We have discussed how blood pressures can vary at different times of the day and in different situations. 6. She was advised to return in one year for her annual well woman exam.
--- NOTE | 2025-01-20 14:20 | MM ---
Reason for Exam: Screening (asymptomatic). Last mammogram was performed 1 year(s) and 2 month(s) ago. Patient History: Menarche at age 14. First Full-Term at age 24. Postmenopausal. Paternal cousin had breast cancer, age 42. Risk Values: Emily 5 year model risk: 1.3%. NCI Lifetime model risk: 4.8%. Prior Study Comparison: 10/08/2018 Bilateral Screening Mammogram, [facility]. 05/25/2020 Bilateral Screening Mammogram, [facility]. 09/14/2021 Bilateral Screening Mammogram, [facility]. 11/21/2022 Bilateral MG 3D screening mammo w/cad, [facility]. 12/04/2023 Bilateral MG 3D screening mammo w/cad, [facility]. Tissue Density: The breasts are heterogeneously dense, which may obscure small masses. Findings: Analyzed By CAD. Right breast: There is no suspicious group of microcalcifications or new suspicious mass. Benign-appearing calcifications right breast. Left breast: There is no suspicious group of microcalcifications or new suspicious mass. Overall Assessment: Benign, BI-RAD 2 Management: Screening Mammogram of both breasts in [address] [facility] will attempt to contact patient to return for supplemental views and ultrasound if indicated. Patient should continue monthly self-breast exams. A clinical breast exam by your physician is recommended on an annual basis. This exam should not preclude additional follow-up of suspicious palpable abnormalities. Note on Emily scores and lifetime risk: 1. A Emily score greater than 3% is considered moderate risk. If this is the case, consider specialist referral to assess eligibility for a risk reducing agent. 2. If overall lifetime risk for the development of breast cancer is 20% or higher, the patient may qualify for future screening with alternating mammogram and breast MRI. [facility], , 01/20/2025 2:16 PM. Electronically signed and approved by: Xu Osborne DO
--- NOTE | 2025-01-21 07:23 | BD ---
EXAMINATION TYPE: Axial Bone Density DATE OF EXAM: 01/20/2025 CLINICAL HISTORY: 64 years old Female. ICD-10 CODE: Z78.0 POST MENOPAUSAL , Additional History: Height: 5 ft 3 in Weight: 180 FRAX RISK QUESTIONS: Alcohol (3 or more units per day): no Family History (Parent hip fracture): no Glucocorticoids (More than 3mos): no (Ex: prednisone, prednisolone, methylprednisolone, dexamethasone, and hydrocortisone). History of Fracture in Adulthood: no Secondary Osteoporosis: 1. Type 1 Diabetes: no 2. Hyperthyroidism: no 3. Menopause before 45: no 4. Malnutrition: no 5. Chronic liver disease: no Rheumatoid Arthritis: no Current Tobacco Use: no RISK FACTORS HISTORY OF: Surgery to Spine/Hip(right/left)/Wrist (right/left): no MEDICATIONS: Thyroid Medications: none Osteoporosis Medications: none EXAM MEASUREMENTS: Bone mineral densitometry was performed using the [employer]. Bone mineral density as measured about the Lumbar spine is: ----- L1-L4(G/cm2): 0.987 T Score Values are as follows: ----- L1: -1.2 ----- L2: -1.6 ----- L3: -1.4 ----- L4: -2.3 ----- L1-L4: -1.6 Z Score Values are as follows: ----- L1: -0.9 ----- L2: -1.3 ----- L3: -1.1 ----- L4: -2.0 ----- L1-L4: -1.3 baseline Bone mineral density about the R hip (g/cm2): 0.840 Bone mineral density about the L hip (g/cm2): 0.763 T Score values are as follows: -----R Neck: -1.4 -----L Neck: -2.0 -----R Total: -1.6 -----L Total: -2.1 Z Score values are as follows: -----R Neck: -1.3 -----L Neck: -1.8 -----R Total: -1.8 -----L Total: -2.3 baseline FRAX%s: The graph provided illustrates a 4.5 % chance for a major osteoporotic fx and a 0.6 % chance for the hips probability for fx in 10 years time. IMPRESSION: Osteopenia (T Score between -2.5 and -1). There is slightly increased risk of fracture and the patient may be considered for treatment. Re-Screen 2-5 years. NOTE: T-SCORE=SD OF THE YOUNG ADULT MEAN. [facility], , 01/21/2025 7:21 AM
--- NOTE | 2025-01-21 12:16 | P.PN ---
Progress Note - Text Progress Note Date: 01/21/25 OUTPATIENT FOLLOW-UP NOTE TEST(S)/RESULTS: Test results from 01/20/2025 include benign mammogram and bone density test showing osteopenia. METHOD OF NOTIFICATION: Patient was notified by phone on 01/21/2025. PATIENT COMMENTS: DIAGNOSIS: Benign mammogram and osteopenia. DISCUSSION: Comparing the results from her 2020 bone density test, there has been some decrease in the hip measurements, especially in the left hip. I have stressed the importance of getting adequate calcium, vitamin D, and regular exercise. We will plan on repeating the bone density test in 2 years. PLAN: As above. She was advised to return in one year for her annual well woman exam.
== END ==
LOC: WWCWWP 12:15
PROVIDERS: ATTEND Obstetrics & Gynecology
DX: Z01.419 Encounter for gynecological examination (general) (routine) without abnormal findings (principal); Z12.31 Encounter for screening mammogram for malignant neoplasm of breast; I10 Essential (primary) hypertension; M85.80 Other specified disorders of bone density and structure, unspecified site; Z78.0 Asymptomatic menopausal state
CPT/HCPCS: 77063; 77067; 77080